=== PATIENT | female | born 1930 ===

== ENCOUNTER 2019-06-11 13:22 | Emergency (ER) | payer OTHER ==
[~2019-06-11] VITALS: Ht 152.4 cm; Wt 65.8 kg
[~2019-06-11 13:22] MED LIST: ASA81 MG; CATAPRES0.1 MG; CEFADROXIL500 MG PO; DILTIAZEM 24HR240 MG; DIOVAN320 MG; LANTUS100 U/ML; ONGLYZA2.5 MG
[2019-06-11] MEDS ORDERED: NAMENDA10 MG (13:37)
[2019-06-11] MEDS ORDERED: [UNRECOGNIZED DRUG - OTHER] (13:39)
[2019-06-11] MEDS ORDERED: BUSPIRONE HCL7.5 MG (13:40)
== END 2019-06-11 15:31 | disposition home or self-care (01) ==
LOC: ER 13:22
DX: R07.89 Other chest pain (principal); M25.511 Pain in right shoulder; G89.11 Acute pain due to trauma